=== PATIENT | male | born 1940 | race African-American/Black ===

== ENCOUNTER 2017-10-09 00:38 | Inpatient (IN) ==
[2017-10-09] MEDS ORDERED: ONDANSETRON 4 MG/2 ML VIAL ONE (01:22)
[2017-10-09] MEDS ORDERED: FAMOTIDINE 20 MG/2 ML VIAL IV ONE (01:22)
[2017-10-09] MEDS ORDERED: methylPREDNISolone SOD SUC 125 MG/2 ML VIAL ONE (01:22)
[2017-10-09] MEDS ORDERED: MECLIZINE 25 MG TABLET PO STA (01:40)
[2017-10-09] MEDS ORDERED: FAMOTIDINE 20 MG/2 ML VIAL IV STA (01:40)
[2017-10-09] MEDS ORDERED: ONDANSETRON 4 MG/2 ML VIAL IV STA (01:40)
[2017-10-09] MEDS ORDERED: SODIUM CHLORIDE 0.9% 1,000 ML IV STA (01:40)
[2017-10-09 01:49] LABS: Basophils % 0.2 % (0.0-0.8); Eosinophils % 0.2 % (0.00-10.9); Hematocrit 50.2 VOL% (42.0-52.0); Immature Granulocytes % 0.6 %; Immature Granulocytes Absolute 0.07 #; Lymphocytes # 1.4 10*3/uL (1.4-4.0); Lymphocytes % 11.4 % (21.2-54.2); Mean Corpuscular HGB Conc 31.9 GM/DL (32-36); Mean Corpuscular Hemoglobin 27 PG (27-34); Mean Corpuscular Volume 85.7 FL (87-102); Mean Platelet Volume 10.7 FL (9.6-12.0); Monocytes # 0.7 10*3/uL (0.11-0.8); Monocytes % 5.9 % (1.7-12.7); Neutrophils # 10.3 10*3/uL (1.4-7.4); Neutrophils % 81.7 % (38.7-73.9); Platelet Count 208 T/CUMM (130-400); Red Blood Count 5.86 MC/CUMM (3.8-5.5); Red Cell Distribution Width 14.5 % (9.3-17.3); White Blood Count 12.6 T/CUMM (4-12)
[2017-10-09 01:54] LABS: INR 1.1
[2017-10-09 02:02] LABS: Albumin 3.4 G/DL (3.4-5.0); Bilirubin,Total 0.5 MG/DL (0.2-1.0); Calcium 8.4 MG/DL (8.5-10.1); Osmolality,Calculated 292.8 MOS/KG (273-304); Total Protein 6.4 G/DL (6.4-8.3)
[2017-10-09 02:03] LABS: Troponin I Only 0.034 NG/ML (0.00-0.045)
[2017-10-09] MEDS ORDERED: POTASSIUM CHLORIDE 20 MEQ TABLET PO STA (02:29)
[2017-10-09 02:53] LABS: Sedimentation Rate-Westergren 0 MM/HR (0-20)
[2017-10-09] MEDS ORDERED: SODIUM BICARBONATE 50 MEQ/50 ML VIAL IV STA (02:59)
[2017-10-09] MEDS ORDERED: ACETYLCYSTEINE 600 MG CAPSULE PO STA (02:59)
[2017-10-09] MEDS ORDERED: SODIUM BICARBONATE 50 MEQ/50 ML SYRINGE IV ONE (03:05)
[2017-10-09 04:44] LABS: Apearance,Urine Slightly Hazy (Clear); Bilirubin,Urine Negative (Negative); Blood, Urine Negative (Negative); Glucose,Urine (UA) Negative (Negative); Hyaline Casts,Urine 12 /LPF (0-3); Ketones,Urine Negative (Negative); Mucus,Urine Occasional /LPF (Occasional); Nitrite,Urine Negative (Negative); Protein,Urine Negative; RBC,Urine 1 /HPF (0-4); Urine Color Yellow (Yellow); Urine Specific Gravity 1.039 (1.001-1.035); WBC,Urine 3 /HPF (0-6)
[2017-10-09] MEDS ORDERED: ONDANSETRON 4 MG/2 ML VIAL IV PRN (05:28)
[2017-10-09] MEDS ORDERED: POTASSIUM CHLORIDE INJ 40 MEQ in SODIUM CHLORIDE 0.9% 1,000 ML IV SCH (05:30)
[2017-10-09] MEDS ORDERED: CETIRIZINE 10 MG TABLET PO PRN (05:34)
[2017-10-09] MEDS: MAGNESIUM OXIDE 400 MG TABLET PO SCH (09:21)
[2017-10-09] MEDS: PANTOPRAZOLE 40 MG TABLET PO SCH (09:21)
[2017-10-09] MEDS: ENOXAPARIN 40 MG/0.4 ML SYRINGE SUBCUT SCH (09:21)
[2017-10-09] MEDS: POTASSIUM CHLORIDE 10 MEQ TABLET PO SCH (09:21)
[2017-10-09] MEDS: SODIUM CHLOR 0.9% KCL 40 MEQ 40 MEQ/1,000 ML BAG IV SCH ×2 (09:22→18:23)
[2017-10-10] MEDS: SODIUM CHLOR 0.9% KCL 40 MEQ 40 MEQ/1,000 ML BAG IV SCH ×2 (01:35→07:36)
[2017-10-10 06:00] LABS: Basophils % 0.2 % (0.0-0.8); Eosinophils # 0.1 10*3/uL (0.0-0.87); Eosinophils % 0.9 % (0.00-10.9); Hematocrit 38.9 VOL% (42.0-52.0); Hemoglobin 12.3 GM/DL (14.0-18.0); Immature Granulocytes % 0.3 %; Immature Granulocytes Absolute 0.03 #; Lymphocytes # 1.2 10*3/uL (1.4-4.0); Lymphocytes % 12.8 % (21.2-54.2); Mean Corpuscular HGB Conc 31.6 GM/DL (32-36); Mean Corpuscular Hemoglobin 28 PG (27-34); Mean Corpuscular Volume 87.2 FL (87-102); Mean Platelet Volume 11.4 FL (9.6-12.0); Monocytes # 0.5 10*3/uL (0.11-0.8); Monocytes % 5.1 % (1.7-12.7); Neutrophils # 7.5 10*3/uL (1.4-7.4); Neutrophils % 80.7 % (38.7-73.9); Platelet Count 136 T/CUMM (130-400); Red Blood Count 4.46 MC/CUMM (3.8-5.5); Red Cell Distribution Width 15.2 % (9.3-17.3); White Blood Count 9.4 T/CUMM (4-12)
[2017-10-10 06:31] LABS: Albumin 2.8 G/DL (3.4-5.0); Bilirubin,Direct 0.11 MG/DL (0.0-0.20); Bilirubin,Indirect 0.4 MG/DL (0.0-1.0); Bilirubin,Total 0.5 MG/DL (0.2-1.0); Total Protein 5.8 G/DL (6.4-8.3)
[2017-10-10 06:33] LABS: % Iron Saturation 35.8 % (18-50); Ferritin 157.9 ng/ml (26-388)
[2017-10-10 06:36] LABS: Albumin 2.8 G/DL (3.4-5.0); Bilirubin,Total 0.4 MG/DL (0.2-1.0); Calcium 8.4 MG/DL (8.5-10.1); Osmolality,Calculated 291.7 MOS/KG (273-304); Potassium 4.6 MMOL/L (3.5-5.1); Risk Ratio 2.12; Thyroid Stimulating Hormone 0.445 uIU/ml (0.358-3.74); Total Protein 5.8 G/DL (6.4-8.3); VLDL CHOLESTEROL 17.4 MG/DL
[2017-10-10 07:45] LABS: HIV Antigen/Antibody Result Nonreactive (Nonreactive); Hepatitis A Ab IgM Quant 0.18 Index; Hepatitis A Ab IgM Result Negative (Negative); Hepatitis B Core IgM Quant 0.15 Index; Hepatitis B Core IgM Result Negative (Negative); Hepatitis B Surface Ab Result Negative; Hepatitis B Surface Ag Quant < 0.10 Index; Hepatitis B Surface Ag Result Negative (Negative); Hepatitis C Virus Ab Quant 0.17 Index; Hepatitis C Virus Ab Result Negative (Negative)
[2017-10-10] MEDS: PANTOPRAZOLE 40 MG TABLET PO SCH (08:23)
[2017-10-10] MEDS: MAGNESIUM OXIDE 400 MG TABLET PO SCH (08:23)
[2017-10-10] MEDS: POTASSIUM CHLORIDE 10 MEQ TABLET PO SCH (08:23)
[2017-10-10] MEDS: ENOXAPARIN 40 MG/0.4 ML SYRINGE SUBCUT SCH (08:25)
[2017-10-10] MEDS ORDERED: amLODIPine 5 MG TABLET PO SCH (11:24)
[2017-10-10] MEDS: TERAZOSIN 5 MG CAPSULE PO SCH (20:32)
[2017-10-11] MEDS: hydrALAZINE 20 MG/1 ML VIAL IV PRN ×2 (05:11→16:27)
[2017-10-11] MEDS: POTASSIUM CHLORIDE 10 MEQ TABLET PO SCH (10:46)
[2017-10-11] MEDS: amLODIPine 10 MG TABLET PO SCH (10:46)
[2017-10-11] MEDS: PANTOPRAZOLE 40 MG TABLET PO SCH (10:46)
[2017-10-11] MEDS: MAGNESIUM OXIDE 400 MG TABLET PO SCH (10:46)
[2017-10-11] MEDS: TERAZOSIN 5 MG CAPSULE PO SCH (21:24)
[2017-10-12 05:20] LABS: Albumin 3.4 G/DL (3.4-5.0); Bilirubin,Total 0.8 MG/DL (0.2-1.0); Calcium 9.2 MG/DL (8.5-10.1); Osmolality,Calculated 283.3 MOS/KG (273-304); Potassium 3.7 MMOL/L (3.5-5.1); Total Protein 6.8 G/DL (6.4-8.3)
[2017-10-12] MEDS ORDERED: LIDOCAINE 1% 5 ML VIAL ONE (09:00)
[2017-10-12] MEDS ORDERED: PROPOFOL 200 MG/20 ML VIAL IV ONE (09:00)
[2017-10-12] MEDS ORDERED: PHENYLEPHRINE 1 MG/10 ML SYRINGE IV ONE (09:00)
[2017-10-12] MEDS ORDERED: ONDANSETRON 4 MG/2 ML VIAL ONE (09:00)
[2017-10-12] MEDS ORDERED: SUCCINYLCHOLINE 200 MG/10 ML VIAL ONE (09:00)
[2017-10-12 09:19] LABS: Basophils % 0.3 % (0.0-0.8); Eosinophils # 0.1 10*3/uL (0.0-0.87); Eosinophils % 1.7 % (0.00-10.9); Hemoglobin 15.3 GM/DL (14.0-18.0); Immature Granulocytes % 0.5 %; Immature Granulocytes Absolute 0.03 #; Lymphocytes # 1.1 10*3/uL (1.4-4.0); Lymphocytes % 16.9 % (21.2-54.2); Mean Corpuscular HGB Conc 32.6 GM/DL (32-36); Mean Corpuscular Hemoglobin 27 PG (27-34); Mean Corpuscular Volume 84.1 FL (87-102); Mean Platelet Volume 10.6 FL (9.6-12.0); Monocytes # 0.4 10*3/uL (0.11-0.8); Monocytes % 6.6 % (1.7-12.7); Neutrophils # 4.8 10*3/uL (1.4-7.4); Platelet Count 168 T/CUMM (130-400); Red Blood Count 5.59 MC/CUMM (3.8-5.5); Red Cell Distribution Width 14.8 % (9.3-17.3); White Blood Count 6.5 T/CUMM (4-12)
[2017-10-12 09:25] LABS: PT Patient Result 10.3 SECS
[2017-10-12] MEDS ORDERED: INDOMETHACIN SUPP 50 MG SUPP RECTAL ONE (09:30)
[2017-10-12] MEDS: LACTATED RINGERS 1,000 ML IV SCH (09:36)
[2017-10-12] MEDS ORDERED: MIDAZOLAM 2 MG/2 ML VIAL ONE (11:27)
[2017-10-12] MEDS ORDERED: fentaNYL 100 MCG/2 ML VIAL ONE (11:27)
[2017-10-12] MEDS ORDERED: EPINEPHrine 1 MG/ML VIAL ONE (13:23)
[2017-10-12] MEDS ORDERED: ePHEDrine 50 MG/ML AMP ONE (13:24)
[2017-10-12] MEDS: MAGNESIUM OXIDE 400 MG TABLET PO SCH (14:26)
[2017-10-12] MEDS: POTASSIUM CHLORIDE 10 MEQ TABLET PO SCH (14:26)
[2017-10-12] MEDS: PANTOPRAZOLE 40 MG TABLET PO SCH (14:26)
[2017-10-12] MEDS: amLODIPine 10 MG TABLET PO SCH (14:26)
[2017-10-12] MEDS ORDERED: SIMETHICONE CHEW 80 MG TABLET PO PRN (15:14)
[2017-10-12] MEDS ORDERED: MORPHINE 4 MG/1 ML VIAL IV PRN ×2 (15:14)
[2017-10-12] MEDS: METOPROLOL TARTRATE 100 MG TABLET PO SCH ×2 (15:43→21:33)
[2017-10-12] MEDS ORDERED: cefOXitin 2,000 MG in SYRINGE 1 EACH IV ONE (16:00)
[2017-10-12] MEDS: LACTULOSE 20 GM/30 ML UDCUP PO SCH (18:04)
[2017-10-12] MEDS: TERAZOSIN 5 MG CAPSULE PO SCH (21:33)
[2017-10-12] MEDS: hydroCHLOROthiazide 25 MG TABLET PO SCH (21:33)
[2017-10-13 05:23] LABS: Basophils % 0.3 % (0.0-0.8); Eosinophils # 0.1 10*3/uL (0.0-0.87); Eosinophils % 1.8 % (0.00-10.9); Hematocrit 39.1 VOL% (42.0-52.0); Hemoglobin 12.5 GM/DL (14.0-18.0); Immature Granulocytes % 0.4 %; Immature Granulocytes Absolute 0.03 #; Lymphocytes % 13.5 % (21.2-54.2); Mean Corpuscular Hemoglobin 27 PG (27-34); Mean Corpuscular Volume 85.2 FL (87-102); Monocytes # 0.5 10*3/uL (0.11-0.8); Monocytes % 6.8 % (1.7-12.7); Neutrophils # 5.7 10*3/uL (1.4-7.4); Neutrophils % 77.2 % (38.7-73.9); Platelet Count 154 T/CUMM (130-400); Red Blood Count 4.59 MC/CUMM (3.8-5.5); Red Cell Distribution Width 14.9 % (9.3-17.3); White Blood Count 7.3 T/CUMM (4-12)
[2017-10-13 05:50] LABS: Albumin 3.2 G/DL (3.4-5.0); Bilirubin,Total 0.6 MG/DL (0.2-1.0); Calcium 8.5 MG/DL (8.5-10.1); Osmolality,Calculated 282.3 MOS/KG (273-304); Potassium 3.6 MMOL/L (3.5-5.1); Total Protein 6.5 G/DL (6.4-8.3)
[2017-10-13] MEDS ORDERED: BUPIVACAINE MPF 0.25% 30 ML VIAL ONE (08:53)
[2017-10-13] MEDS ORDERED: LIDOCAINE 1%/EPI INJ 20 ML VIAL ONE (08:53)
[2017-10-13] MEDS ORDERED: TISSUE ADHESIVE 1 EACH APPLICATOR TOP ONE (08:53)
[2017-10-13] MEDS ORDERED: MIDAZOLAM 2 MG/2 ML VIAL ONE (10:46)
[2017-10-13] MEDS ORDERED: DESFLURANE 1 UNIT/15 MINUTE INH ONE (10:46)
[2017-10-13] MEDS ORDERED: SEVOFLURANE 1 UNIT/15 MINUTE INH ONE (10:46)
[2017-10-13] MEDS ORDERED: PROPOFOL 200 MG/20 ML VIAL IV ONE (10:46)
[2017-10-13] MEDS ORDERED: PHENYLEPHRINE 1 MG/10 ML SYRINGE IV ONE (10:47)
[2017-10-13] MEDS ORDERED: PHENYLEPHRINE 10 MG/1 ML VIAL IV ONE (10:47)
[2017-10-13] MEDS ORDERED: ePHEDrine 50 MG/ML AMP ONE (10:47)
[2017-10-13] MEDS ORDERED: fentaNYL 100 MCG/2 ML VIAL ONE (10:47)
[2017-10-13] MEDS ORDERED: SUCCINYLCHOLINE 200 MG/10 ML VIAL ONE (10:48)
[2017-10-13] MEDS ORDERED: LACTATED RINGERS 1,000 ML IV ONE (10:48)
[2017-10-13] MEDS ORDERED: ROCURONIUM 100 MG/10 ML VIAL IV ONE (10:48)
[2017-10-13] MEDS ORDERED: SODIUM CHLORIDE 0.9% 250 ML IV ONE (10:48)
[2017-10-13] MEDS ORDERED: MEPERIDINE 25 MG/1 ML VIAL ONE (10:52)
[2017-10-13] MEDS ORDERED: ONDANSETRON 4 MG/2 ML VIAL ONE (10:52)
[2017-10-13] MEDS ORDERED: MORPHINE 10 MG/1 ML VIAL IV PRN (10:58)
[2017-10-13] MEDS ORDERED: MEPERIDINE 25 MG/1 ML VIAL IV PRN (10:58)
[2017-10-13] MEDS ORDERED: ONDANSETRON 4 MG/2 ML VIAL IV PRN (10:58)
[2017-10-13] MEDS: LACTATED RINGERS 1,000 ML IV SCH ×4 (11:08→21:25)
[2017-10-13] MEDS: LOSARTAN 50 MG TABLET PO SCH (12:32)
[2017-10-13] MEDS: MAGNESIUM OXIDE 400 MG TABLET PO SCH (12:32)
[2017-10-13] MEDS: amLODIPine 10 MG TABLET PO SCH (12:32)
[2017-10-13] MEDS: POTASSIUM CHLORIDE 10 MEQ TABLET PO SCH (12:32)
[2017-10-13] MEDS: PANTOPRAZOLE 40 MG TABLET PO SCH (12:32)
[2017-10-13] MEDS: METOPROLOL TARTRATE 100 MG TABLET PO SCH ×2 (12:32→21:24)
[2017-10-13] MEDS: LACTULOSE 20 GM/30 ML UDCUP PO SCH (12:33)
[2017-10-13] MEDS: TERAZOSIN 5 MG CAPSULE PO SCH (21:24)
[2017-10-13] MEDS: hydroCHLOROthiazide 25 MG TABLET PO SCH (21:24)
[2017-10-14 04:15] LABS: Basophils % 0.1 % (0.0-0.8); Eosinophils # 0.1 10*3/uL (0.0-0.87); Eosinophils % 0.9 % (0.00-10.9); Hematocrit 39.9 VOL% (42.0-52.0); Hemoglobin 12.8 GM/DL (14.0-18.0); Immature Granulocytes % 0.3 %; Immature Granulocytes Absolute 0.02 #; Lymphocytes # 0.9 10*3/uL (1.4-4.0); Lymphocytes % 11.5 % (21.2-54.2); Mean Corpuscular HGB Conc 32.1 GM/DL (32-36); Mean Corpuscular Hemoglobin 27 PG (27-34); Mean Corpuscular Volume 85.4 FL (87-102); Mean Platelet Volume 10.7 FL (9.6-12.0); Monocytes # 0.6 10*3/uL (0.11-0.8); Monocytes % 7.7 % (1.7-12.7); Neutrophils # 5.9 10*3/uL (1.4-7.4); Neutrophils % 79.5 % (38.7-73.9); Platelet Count 149 T/CUMM (130-400); Red Blood Count 4.67 MC/CUMM (3.8-5.5); Red Cell Distribution Width 14.9 % (9.3-17.3); White Blood Count 7.5 T/CUMM (4-12)
[2017-10-14 04:52] LABS: Albumin 2.6 G/DL (3.4-5.0); Bilirubin,Direct 0.21 MG/DL (0.0-0.20); Bilirubin,Indirect 0.9 MG/DL (0.0-1.0); Bilirubin,Total 1.1 MG/DL (0.2-1.0); Total Protein 6.2 G/DL (6.4-8.3)
[2017-10-14 04:55] LABS: Calcium 8.7 MG/DL (8.5-10.1); Osmolality,Calculated 277.5 MOS/KG (273-304); Potassium 3.8 MMOL/L (3.5-5.1)
[2017-10-14] MEDS: LACTATED RINGERS 1,000 ML IV SCH (07:15)
[2017-10-14] MEDS: ENOXAPARIN 40 MG/0.4 ML SYRINGE SUBCUT SCH (09:37)
[2017-10-14] MEDS: METOPROLOL TARTRATE 100 MG TABLET PO SCH ×2 (09:37→21:13)
[2017-10-14] MEDS: LACTULOSE 20 GM/30 ML UDCUP PO SCH (09:37)
[2017-10-14] MEDS: LOSARTAN 50 MG TABLET PO SCH (09:37)
[2017-10-14] MEDS: amLODIPine 10 MG TABLET PO SCH (09:37)
[2017-10-14] MEDS: POTASSIUM CHLORIDE 10 MEQ TABLET PO SCH (09:37)
[2017-10-14] MEDS: PANTOPRAZOLE 40 MG TABLET PO SCH (09:37)
[2017-10-14] MEDS: MAGNESIUM OXIDE 400 MG TABLET PO SCH (09:37)
[2017-10-14] MEDS ORDERED: BISACODYL 10 MG SUPP RECTAL ONE (12:30)
[2017-10-14] MEDS: hydroCHLOROthiazide 25 MG TABLET PO SCH (21:13)
[2017-10-14] MEDS: TERAZOSIN 5 MG CAPSULE PO SCH (21:13)
[2017-10-15 05:21] LABS: Albumin 2.6 G/DL (3.4-5.0); Bilirubin,Direct 0.24 MG/DL (0.0-0.20); Bilirubin,Total 1.2 MG/DL (0.2-1.0); Total Protein 6.2 G/DL (6.4-8.3)
[2017-10-15 07:34] VITALS: BP 149/84
[2017-10-15] MEDS: LACTULOSE 20 GM/30 ML UDCUP PO SCH (08:24)
[2017-10-15] MEDS: PANTOPRAZOLE 40 MG TABLET PO SCH (08:25)
[2017-10-15] MEDS: amLODIPine 10 MG TABLET PO SCH (08:25)
[2017-10-15] MEDS: LOSARTAN 50 MG TABLET PO SCH (08:25)
[2017-10-15] MEDS: ENOXAPARIN 40 MG/0.4 ML SYRINGE SUBCUT SCH (08:25)
[2017-10-15] MEDS: MAGNESIUM OXIDE 400 MG TABLET PO SCH (08:25)
[2017-10-15] MEDS: POTASSIUM CHLORIDE 10 MEQ TABLET PO SCH (08:25)
[2017-10-15] MEDS: METOPROLOL TARTRATE 100 MG TABLET PO SCH (08:25)
[2017-10-15 08:29] LABS: Apearance,Urine CLEAR (Clear); Bilirubin,Urine Negative (Negative); Blood, Urine Negative (Negative); Glucose,Urine (UA) Negative (Negative); Ketones,Urine Negative (Negative); Mucus,Urine Occasional /LPF (Occasional); Nitrite,Urine Negative (Negative); Protein,Urine Negative; RBC,Urine <1 /HPF (0-4); Urine Color Yellow (Yellow); Urine Specific Gravity 1.008 (1.001-1.035); Urine Urobilinogen < 2.0 EU/DL (0.2-1.0); WBC,Urine <1 /HPF (0-6)
== END 2017-10-15 11:43 | disposition home or self-care (01) | DRG 418 ==
LOC: N.ED 00:38 → N.EDINP 05:28 → SUATTDRO 05:28 → N.5E 06:15 → N.TELEN 10-10 11:17
PROVIDERS: ADMIT Family Medicine; ATTEND Internal Medicine
PROC: ERCPWSP (ICD-10-PCS; 2017-10-12 10:30)
PROC: LAPCHOL (2017-10-13 08:50)

== ENCOUNTER 2017-11-26 15:00 | Inpatient (IN) ==
[2017-11-26] MEDS ORDERED: diphenhydrAMINE 50 MG/1 ML VIAL IV STA (15:20)
[2017-11-26] MEDS ORDERED: methylPREDNISolone SOD SUC 125 MG/2 ML VIAL IV STA (15:20)
[2017-11-26] MEDS ORDERED: diphenhydrAMINE 50 MG/1 ML VIAL ONE (15:22)
[2017-11-26] MEDS ORDERED: methylPREDNISolone SOD SUC 125 MG/2 ML VIAL ONE (15:22)
[2017-11-26 16:02] LABS: Basophils % 0.1 % (0.0-0.8); Eosinophils % 0.1 % (0.00-10.9); Hematocrit 45.2 VOL% (42.0-52.0); Hemoglobin 15.1 GM/DL (14.0-18.0); Immature Granulocytes % 0.4 %; Immature Granulocytes Absolute 0.05 #; Lymphocytes # 1.2 10*3/uL (1.4-4.0); Lymphocytes % 10.3 % (21.2-54.2); Mean Corpuscular HGB Conc 33.4 GM/DL (32-36); Mean Corpuscular Hemoglobin 27 PG (27-34); Mean Corpuscular Volume 81.9 FL (87-102); Mean Platelet Volume 10.8 FL (9.6-12.0); Monocytes # 0.5 10*3/uL (0.11-0.8); Monocytes % 4.5 % (1.7-12.7); Neutrophils # 10.1 10*3/uL (1.4-7.4); Neutrophils % 84.6 % (38.7-73.9); Platelet Count 200 T/CUMM (130-400); Red Blood Count 5.52 MC/CUMM (3.8-5.5); Red Cell Distribution Width 14.6 % (9.3-17.3); White Blood Count 11.9 T/CUMM (4-12)
[2017-11-26 16:14] LABS: INR 1.1; PT Patient Result 11.4 SECS; Partial Thromboplastin Time < 21.0 SECS (0-40)
[2017-11-26 16:26] LABS: Alanine Aminotransferase 358 U/L (16-61); Alkaline Phosphatase 135 U/L (45-117); Aspartate Amino Transferase 707 U/L (0-37); Blood Urea Nitrogen 18 MG/DL (7-18); Calcium 8.4 MG/DL (8.5-10.1); Glucose 175 MG/DL (74-106); Osmolality,Calculated 286.3 MOS/KG (273-304); Potassium 3.3 MMOL/L (3.5-5.1); Sodium 141 MMOL/L (136-145)
[2017-11-26] MEDS ORDERED: ONDANSETRON 4 MG/2 ML VIAL ONE (16:48)
[2017-11-26] MEDS ORDERED: POTASSIUM BICARB EFFERVESCENT 25 MEQ TABLET PO ONE (17:04)
[2017-11-26] MEDS ORDERED: METOCLOPRAMIDE 10 MG/2 ML VIAL IV STA (17:04)
[2017-11-26] MEDS ORDERED: ONDANSETRON 4 MG/2 ML VIAL IV STA (17:17)
[2017-11-26 19:17] LABS: Apearance,Urine CLOUDY (Clear); Bilirubin,Urine Negative (Negative); Blood, Urine Negative (Negative); Glucose,Urine (UA) Negative (Negative); Hyaline Casts,Urine 1 /LPF (0-3); Ketones,Urine Negative (Negative); Mucus,Urine Occasional /LPF (Occasional); Nitrite,Urine Negative (Negative); Protein,Urine 30 MG/DL; RBC,Urine 3 /HPF (0-4); Squamous Epithelial Cell,Urine Occasional /HPF (0-10); Urine Color Amber (Yellow); Urine Specific Gravity 1.049 (1.001-1.035); WBC,Urine 14 /HPF (0-6)
[2017-11-26 19:24] LABS: Barbiturates Screen,Urine Negative (Negative); Benzodiazepines Screen,Urine Negative (Negative); Cannabinoid Screen,Urine Negative (Negative); Opiate Screen,Urine Negative (Negative); Phencyclidine Screen,Urine Negative (Negative)
[2017-11-26] MEDS ORDERED: ONDANSETRON 4 MG/2 ML VIAL IV PRN (21:55)
[2017-11-26] MEDS ORDERED: diphenhydrAMINE 50 MG/1 ML VIAL IV PRN (21:55)
[2017-11-26] MEDS ORDERED: LACTULOSE 20 GM/30 ML UDCUP PO PRN (21:55)
[2017-11-26] MEDS ORDERED: MORPHINE 4 MG/1 ML VIAL IV PRN (21:55)
[2017-11-26] MEDS ORDERED: ENOXAPARIN 30 MG/0.3 ML SYRINGE SUBCUT SCH (22:00)
[2017-11-26] MEDS ORDERED: POTASSIUM CHLORIDE 20 MEQ TABLET PO ONE (22:30)
[2017-11-26] MEDS: DOCUSATE SODIUM 100 MG CAPSULE PO SCH (23:39)
[2017-11-26] MEDS: SODIUM CHLORIDE 0.9% 1,000 ML IV SCH (23:40)
[2017-11-27 01:07] LABS: Hepatitis A Ab IgM Quant 0.26 Index; Hepatitis A Ab IgM Result Negative (Negative); Hepatitis B Core IgM Quant < 0.05 Index; Hepatitis B Core IgM Result Negative (Negative); Hepatitis B Surface Ag Result Negative (Negative); Hepatitis C Virus Ab Quant 0.04 Index; Hepatitis C Virus Ab Result Negative (Negative)
[2017-11-27 05:15] LABS: Basophils % 0.1 % (0.0-0.8); Eosinophils % 0.1 % (0.00-10.9); Hematocrit 40.8 VOL% (42.0-52.0); Hemoglobin 13.4 GM/DL (14.0-18.0); Immature Granulocytes % 0.5 %; Immature Granulocytes Absolute 0.05 #; Lymphocytes # 0.8 10*3/uL (1.4-4.0); Lymphocytes % 8.4 % (21.2-54.2); Mean Corpuscular HGB Conc 32.8 GM/DL (32-36); Mean Corpuscular Hemoglobin 27 PG (27-34); Mean Corpuscular Volume 83.4 FL (87-102); Mean Platelet Volume 11.1 FL (9.6-12.0); Monocytes # 0.3 10*3/uL (0.11-0.8); Monocytes % 2.7 % (1.7-12.7); Neutrophils # 8.1 10*3/uL (1.4-7.4); Neutrophils % 88.2 % (38.7-73.9); Platelet Count 185 T/CUMM (130-400); Red Blood Count 4.89 MC/CUMM (3.8-5.5); Red Cell Distribution Width 14.8 % (9.3-17.3); White Blood Count 9.2 T/CUMM (4-12)
[2017-11-27 05:48] LABS: Bilirubin,Total 1.8 MG/DL (0.2-1.0); Calcium 8.8 MG/DL (8.5-10.1); Total Protein 5.9 G/DL (6.4-8.3)
[2017-11-27 05:49] LABS: Osmolality,Calculated 283.5 MOS/KG (273-304); Risk Ratio 1.58; VLDL CHOLESTEROL 5.8 MG/DL
[2017-11-27 07:13] LABS: Apearance,Urine Slightly Hazy (Clear); Bacteria,Urine Occasional /HPF (Few); Bilirubin,Urine Negative (Negative); Blood, Urine Large mg/dL (Negative); Glucose,Urine (UA) Negative (Negative); Ketones,Urine Negative (Negative); Mucus,Urine Occasional /LPF (Occasional); Nitrite,Urine Negative (Negative); Protein,Urine Negative; RBC,Urine 18 /HPF (0-4); Squamous Epithelial Cell,Urine Occasional /HPF (0-10); Urine Color Amber (Yellow); Urine Specific Gravity 1.055 (1.001-1.035); WBC,Urine 14 /HPF (0-6)
[2017-11-27 08:49] VITALS: BP 127/72
[2017-11-27] MEDS ORDERED: PANTOPRAZOLE 40 MG TABLET PO SCH (09:00)
[2017-11-27] MEDS: DOCUSATE SODIUM 100 MG CAPSULE PO SCH (09:52)
[2017-11-27] MEDS: SODIUM CHLORIDE 0.9% 1,000 ML IV SCH (09:52)
== END 2017-11-27 11:23 | disposition home or self-care (01) | DRG 316 ==
LOC: EDUNIT# → EDBD → N.ED 15:00 → N.EDINP 19:57 → N.5E 21:23

== ENCOUNTER 2017-12-01 19:55 | Inpatient (IN) ==
[2017-12-01] MEDS ORDERED: SODIUM CHLORIDE 0.9% 500 ML IV ONE (20:20)
[2017-12-01] MEDS ORDERED: PANTOPRAZOLE 40 MG VIAL IV STA (20:20)
[2017-12-01] MEDS ORDERED: FAMOTIDINE 20 MG/2 ML VIAL IV STA (20:20)
[2017-12-01] MEDS ORDERED: ONDANSETRON 4 MG/2 ML VIAL IV STA (20:20)
[2017-12-01] MEDS ORDERED: EPINEPHrine 1 MG/ML VIAL SUBCUT STA (20:20)
[2017-12-01] MEDS ORDERED: diphenhydrAMINE 50 MG/1 ML VIAL IV STA (20:20)
[2017-12-01] MEDS ORDERED: methylPREDNISolone SOD SUC 125 MG/2 ML VIAL IV STA (20:20)
[2017-12-01 20:46] LABS: Basophils % 0.1 % (0.0-0.8); Eosinophils # 0.1 10*3/uL (0.0-0.87); Eosinophils % 0.6 % (0.00-10.9); Hematocrit 42.4 VOL% (42.0-52.0); Hemoglobin 13.6 GM/DL (14.0-18.0); Immature Granulocytes % 0.5 %; Immature Granulocytes Absolute 0.04 #; Lymphocytes # 0.8 10*3/uL (1.4-4.0); Lymphocytes % 8.7 % (21.2-54.2); Mean Corpuscular HGB Conc 32.1 GM/DL (32-36); Mean Corpuscular Hemoglobin 27 PG (27-34); Mean Corpuscular Volume 85.1 FL (87-102); Mean Platelet Volume 10.4 FL (9.6-12.0); Monocytes # 0.4 10*3/uL (0.11-0.8); Monocytes % 4.6 % (1.7-12.7); Neutrophils # 7.5 10*3/uL (1.4-7.4); Neutrophils % 85.5 % (38.7-73.9); Platelet Count 185 T/CUMM (130-400); Red Blood Count 4.98 MC/CUMM (3.8-5.5); Red Cell Distribution Width 15.1 % (9.3-17.3); White Blood Count 8.7 T/CUMM (4-12)
[2017-12-01 22:03] LABS: Lactic Acid 1.3 MMOL/L (0.4-2.0)
[2017-12-01 22:52] LABS: Albumin 3.5 G/DL (3.4-5.0); Calcium 8.9 MG/DL (8.5-10.1); Osmolality,Calculated 277.7 MOS/KG (273-304); Potassium 3.5 MMOL/L (3.5-5.1); Total Protein 6.6 G/DL (6.4-8.3)
[2017-12-01 23:07] LABS: Apearance,Urine CLEAR (Clear); Bilirubin,Urine Negative (Negative); Blood, Urine Negative (Negative); Glucose,Urine (UA) Negative (Negative); Ketones,Urine Negative (Negative); Nitrite,Urine Negative (Negative); Protein,Urine Negative; RBC,Urine <1 /HPF (0-4); Urine Color Yellow (Yellow); Urine Specific Gravity 1.003 (1.001-1.035); Urine Urobilinogen < 2.0 EU/DL (0.2-1.0); WBC,Urine <1 /HPF (0-6)
[2017-12-01] MEDS ORDERED: MORPHINE 4 MG/1 ML VIAL IV PRN (23:57)
[2017-12-01] MEDS ORDERED: ACETAMINOPHEN 325 MG TABLET PO PRN (23:57)
[2017-12-01] MEDS ORDERED: ONDANSETRON 4 MG/2 ML VIAL IV PRN (23:57)
[2017-12-02] MEDS: SODIUM CHLORIDE 0.9% 1,000 ML IV SCH ×3 (02:19→21:07)
[2017-12-02] MEDS: METOPROLOL TARTRATE 50 MG TABLET PO SCH ×3 (02:20→21:05)
[2017-12-02] MEDS ORDERED: diphenhydrAMINE 50 MG/1 ML VIAL IV PRN (03:08)
[2017-12-02 05:27] LABS: Basophils % 0.1 % (0.0-0.8); Hematocrit 40.2 VOL% (42.0-52.0); Hemoglobin 13.3 GM/DL (14.0-18.0); Immature Granulocytes % 0.5 %; Immature Granulocytes Absolute 0.06 #; Lymphocytes # 0.4 10*3/uL (1.4-4.0); Lymphocytes % 2.8 % (21.2-54.2); Mean Corpuscular HGB Conc 33.1 GM/DL (32-36); Mean Corpuscular Hemoglobin 28 PG (27-34); Mean Corpuscular Volume 84.1 FL (87-102); Monocytes # 0.2 10*3/uL (0.11-0.8); Monocytes % 1.4 % (1.7-12.7); Neutrophils # 11.9 10*3/uL (1.4-7.4); Neutrophils % 95.2 % (38.7-73.9); Platelet Count 180 T/CUMM (130-400); Red Blood Count 4.78 MC/CUMM (3.8-5.5); Red Cell Distribution Width 15.1 % (9.3-17.3); White Blood Count 12.5 T/CUMM (4-12)
[2017-12-02 05:50] LABS: Albumin 3.1 G/DL (3.4-5.0); Bilirubin,Total 3.6 MG/DL (0.2-1.0); Calcium 8.6 MG/DL (8.5-10.1); Osmolality,Calculated 284.3 MOS/KG (273-304); Potassium 3.7 MMOL/L (3.5-5.1); Total Protein 6.2 G/DL (6.4-8.3)
[2017-12-02 07:24] LABS: Anisocytosis 1+; Band Neutrophils 15 % (0-10); Lymphocytes 3 % (20-55); Platelet Estimate Normal; Segmented Neutrophils 81 % (50-85); Total Cells Counted 100
[2017-12-02] MEDS: PIPERACILLIN/TAZOBACTAM 3,375 MG in SODIUM CHLORIDE 0.9% 100 ML IV SCH ×2 (09:47→21:04)
[2017-12-02] MEDS: DEXT 5% NACL 0.9% KCL 20 MEQ 20 MEQ/1,000 ML BAG IV SCH (09:48)
[2017-12-02] MEDS: hydroCHLOROthiazide 25 MG TABLET PO SCH (10:00)
[2017-12-02] MEDS: POTASSIUM CHLORIDE 10 MEQ TABLET PO SCH (10:00)
[2017-12-02] MEDS: MAGNESIUM OXIDE 400 MG TABLET PO SCH (10:01)
[2017-12-02] MEDS: ENOXAPARIN 40 MG/0.4 ML SYRINGE SUBCUT SCH (17:07)
[2017-12-02] MEDS ORDERED: TERAZOSIN 5 MG CAPSULE PO SCH (21:00)
[2017-12-02] MEDS: URSODIOL 300 MG CAPSULE PO SCH (22:06)
[2017-12-03] MEDS: DEXT 5% NACL 0.9% KCL 20 MEQ 20 MEQ/1,000 ML BAG IV SCH ×3 (05:15→13:00)
[2017-12-03] MEDS: PIPERACILLIN/TAZOBACTAM 3,375 MG in SODIUM CHLORIDE 0.9% 100 ML IV SCH ×2 (05:16→13:01)
[2017-12-03] MEDS: hydroCHLOROthiazide 25 MG TABLET PO SCH (08:34)
[2017-12-03] MEDS: ENOXAPARIN 40 MG/0.4 ML SYRINGE SUBCUT SCH (08:34)
[2017-12-03] MEDS: POTASSIUM CHLORIDE 10 MEQ TABLET PO SCH (08:34)
[2017-12-03] MEDS: URSODIOL 300 MG CAPSULE PO SCH (08:34)
[2017-12-03] MEDS: METOPROLOL TARTRATE 50 MG TABLET PO SCH (08:34)
[2017-12-03] MEDS: MAGNESIUM OXIDE 400 MG TABLET PO SCH (08:34)
[2017-12-03 09:46] LABS: Basophils % 0.2 % (0.0-0.8); Eosinophils # 0.1 10*3/uL (0.0-0.87); Eosinophils % 1.8 % (0.00-10.9); Hematocrit 36.2 VOL% (42.0-52.0); Hemoglobin 11.6 GM/DL (14.0-18.0); Immature Granulocytes % 0.4 %; Immature Granulocytes Absolute 0.02 #; Lymphocytes # 0.5 10*3/uL (1.4-4.0); Lymphocytes % 8.7 % (21.2-54.2); Mean Corpuscular Hemoglobin 28 PG (27-34); Mean Corpuscular Volume 86.4 FL (87-102); Mean Platelet Volume 10.2 FL (9.6-12.0); Monocytes # 0.4 10*3/uL (0.11-0.8); Monocytes % 6.4 % (1.7-12.7); Neutrophils # 4.7 10*3/uL (1.4-7.4); Neutrophils % 82.5 % (38.7-73.9); Platelet Count 132 T/CUMM (130-400); Red Blood Count 4.19 MC/CUMM (3.8-5.5); Red Cell Distribution Width 15.7 % (9.3-17.3); White Blood Count 5.6 T/CUMM (4-12)
[2017-12-03 10:13] LABS: Albumin 2.7 G/DL (3.4-5.0); Calcium 8.3 MG/DL (8.5-10.1); Osmolality,Calculated 282.3 MOS/KG (273-304); Potassium 4.2 MMOL/L (3.5-5.1); Total Protein 5.9 G/DL (6.4-8.3)
[2017-12-03 14:05] VITALS: BP 155/87
[2017-12-03] MEDS ORDERED: hydrALAZINE 25 MG TABLET PO SCH (21:00)
[2017-12-04] MEDS ORDERED: LEVOFLOXACIN 500 MG TABLET PO SCH (09:00)
== END 2017-12-03 15:55 | disposition home or self-care (01) | DRG 440 ==
LOC: N.ED 19:55 → N.EDINP 23:57 → N.4E 12-02 01:16
PROVIDERS: ADMIT Hospitalist; ATTEND Hospitalist